=== PATIENT | male | born 1985 | race American Indian/Alaskan Native ===

== ENCOUNTER 2018-07-21 01:28 | Emergency (ER) | payer BC ==
[2018-07-21 01:35] VITALS: BP 130/70
[2018-07-21] MEDS ORDERED: IBUPROFEN PO ONE (04:51)
[2018-07-21] MEDS ORDERED: TYLENOL PO ONE (04:51)
--- NOTE | 2018-07-21 05:37 | XRay Report ---
PROCEDURE: XR KNEE 3V RT TECHNIQUE: Right knee radiographs, AP, lateral, and sunrise views. HISTORY: right knee pain COMPARISONS: None FINDINGS: Fracture (s) and/or Dislocation(s): None Alignment: Normal Joint space(s): Normal Soft tissues: Normal Bone mineralization: Normal Foreign bodies: None IMPRESSION: Normal Examination This document is electronically signed by Oren Schafer MD., July 21 2018 05:35:49 AM ET
--- NOTE | 2018-07-21 06:28 | Emergency Department Report ---
ED Lower Extremity HPI - General Chief Complaint: Extremity Injury, Lower Stated Complaint: RIGHT QUAD PULL Time Seen by Provider: 07/21/18 04:40 Source: patient Mode of arrival: Wheelchair Limitations: No Limitations - History of Present Illness Initial Comments: Patient is a 33-year-old [place] male with no past medical history presents to the ED with, in no acute onset persistent severe right knee pain and distal right thigh pain after he twisted his left leg and fell landing on the right knee and right thigh about 2 hours ago. Patient states he heard a "pop"sound and suspects that he may have torn his thigh muscles or suffered a fracture of the right knee in the process. Patient states that he is unable to bear weight on the right leg because of severe right knee pain. Patient denies head or neck injury, hip pain, low back pain, numbness and tingling or weakness of her right leg, dizziness, syncope, chest pain, shortness of breath, change in vision, abdominal pain, neck pain or loss of consciousness. MD Complaint: knee injury (right), leg injury (right thigh) -: Sudden, hour(s) (2), This morning Injury: Thigh: Right, Knee: Right Type of Injury: blunt, other (fall) Place: home Severity: severe Severity scale (0 -10): 8 Improves With: nothing Worsens With: weight bearing, movement, palpation Context: fall, walking Associated Symptoms: snap/pop sensation, able to partially bear weight. denies: swelling, numbness, tingling, ambulatory - Related Data Previous Rx's Medication Instructions Recorded Last Taken Type Acetaminophen/Codeine [Tylenol 1 tab PO Q6H PRN #15 tab 07/21/18 Unknown Rx /Codeine # 3 tab] Cyclobenzaprine [Flexeril] 10 mg PO Q8H PRN #21 tablet 07/21/18 Unknown Rx Ibuprofen [Motrin] 800 mg PO Q8HR PRN #24 tablet 07/21/18 Unknown Rx Allergies Allergy/AdvReac Type Severity Reaction Status Date / Time No Known Allergies Allergy Unverified 07/21/18 01:32 ED Review of Systems ROS: Stated complaint: RIGHT QUAD PULL Other details as noted in HPI Constitutional: denies: chills, fever Eyes: denies: eye pain, eye discharge, vision change ENT: denies: ear pain, throat pain Respiratory: denies: cough, shortness of breath, wheezing Cardiovascular: denies: chest pain, palpitations Endocrine: no symptoms reported Gastrointestinal: denies: abdominal pain, nausea, diarrhea Genitourinary: denies: urgency, dysuria Musculoskeletal: arthralgia (right knee and thigh pain). denies: back pain, joint swelling Skin: denies: rash, lesions Neurological: denies: headache, weakness, paresthesias Psychiatric: denies: anxiety, depression Hematological/Lymphatic: denies: easy bleeding, easy bruising ED Past Medical Hx - Past Medical History Previous Medical History?: No - Surgical History Past Surgical History?: No - Social History Smoking Status: Former Smoker Substance Use Type: Alcohol - Medications Home Medications: Home Medications Medication Instructions Recorded Confirmed Last Taken Type Acetaminophen/Codeine [Tylenol 1 tab PO Q6H PRN #15 tab 07/21/18 Unknown Rx /Codeine # 3 tab] Cyclobenzaprine [Flexeril] 10 mg PO Q8H PRN #21 tablet 07/21/18 Unknown Rx Ibuprofen [Motrin] 800 mg PO Q8HR PRN #24 tablet 07/21/18 Unknown Rx ED Physical Exam - General Limitations: No Limitations General appearance: alert, in no apparent distress - Head Head exam: Present: atraumatic, normocephalic, normal inspection - Eye Eye exam: Present: normal appearance, PERRL, EOMI. Absent: scleral icterus, conjunctival injection, nystagmus Pupils: Present: normal accommodation - ENT ENT exam: Present: normal exam, normal orophraynx, mucous membranes moist, TM's normal bilaterally, normal external ear exam - Neck Neck exam: Present: normal inspection, full ROM - Respiratory Respiratory exam: Present: normal lung sounds bilaterally. Absent: respiratory distress, wheezes, rhonchi, chest wall tenderness, accessory muscle use, decreased breath sounds, prolonged expiratory - Cardiovascular Cardiovascular Exam: Present: regular rate, normal rhythm, normal heart sounds. Absent: systolic murmur, diastolic murmur, rubs, gallop - GI/Abdominal GI/Abdominal exam: Present: soft, normal bowel sounds. Absent: tenderness, guarding, rebound, hyperactive bowel sounds, hypoactive bowel sounds, organomegaly - Rectal Rectal exam: Present: deferred - Extremities Exam Extremities exam: Present: normal inspection, tenderness (right knee tenderness with limited ROM due to pain), normal capillary refill. Absent: full ROM (limited due to pain) - Expanded Lower Extremity Exam Right Knee exam: Present: tenderness, pain w/ pronation/supination, posterior draw sign. Absent: full ROM (due to pain), swelling, laceration, ecchymosis, de formity, dislocation, erythema, full knee extension - Back Exam Back exam: Present: normal inspection, full ROM. Absent: tenderness, CVA tenderness (L), muscle spasm, paraspinal tenderness - Neurological Exam Neurological exam: Present: alert, oriented X3, CN II-XII intact, normal gait, reflexes normal - Psychiatric Psychiatric exam: Present: normal affect, normal mood - Skin Skin exam: Present: warm, dry, intact, normal color. Absent: rash ED Course Vital Signs 07/21/18 01:33 Temperature 98.4 F Pulse Rate 90 Respiratory 20 Rate Blood Pressure 130/70 O2 Sat by Pulse 96 Oximetry - Reevaluation(s) Reevaluation #1: 07/21/18 06:29 Patient is alert and oriented 3 and is not in distress with normal vital signs. Patient was treated for pain in the ED and right knee x-ray shows no acute fractures or subluxations. The right knee was immobilized in a knee mobilizer and patient fitted with crutches, and discharged home on pain medications and muscle relaxants. Patient was referred to the orthopedic surgeon social organization professor Dr. Jose for follow-up in the next 2-3 days. Vision advised to contact Dr. Jose's office to schedule an appointment for evaluation. Patient was advised to return to the ED immediately if symptoms get worse. ED Lower Extremity MDM - Radiology Data Radiology results: report reviewed, image reviewed Right knee x-ray: No acute fractures or subluxations - Medical Decision Making Patient is alert and oriented 3 and is not in distress with normal vital signs. Patient was treated for pain in the ED and right knee x-ray shows no acute fractures or subluxations. The patient's symptoms are likely related to a right knee sprain or right thigh muscle strain. The right knee was immobilized in a knee mobilizer and patient fitted with crutches, and discharged home on pain medications and muscle relaxants. Patient was referred to the orthopedic surgeon social organization professor Dr. Jose for follow-up in the next 2-3 days. Vision advised to contact Dr. Jose's office to schedule an appointment for evaluation. Patient was advised to return to the ED immediately if symptoms get worse. - Differential Diagnosis Right knee sprain; Right knee fracture, Right thigh muscle strain Critical care attestation.: If time is entered above; I have spent that time in minutes in the direct care of this critically ill patient, excluding procedure time. ED Disposition Clinical Impression: Sprain of right knee Qualifiers: Encounter type: initial encounter Involved ligament of knee: lateral collateral ligament Qualified Code(s): S83.421A - Sprain of lateral collateral ligament of right knee, initial encounter Muscle strain of right thigh Qualifiers: Encounter type: initial encounter Qualified Code(s): S76.911A - Strain of unspecified muscles, fascia and tendons at thigh level, right thigh, initial encounter Contusion of right leg Qualifiers: Encounter type: initial encounter Qualified Code(s): S80.11XA - Contusion of right lower leg, initial encounter Disposition: TO HOME OR SELFCARE Is pt being admited?: No Does the pt Need Aspirin: No Condition: Stable Instructions: Muscle Strain (ED), Knee Sprain (ED), Leg Sprain (ED) Additional Instructions: Take medications with food, drink plenty of fluids and follow up with your primary care physician in 3-5 days for reevaluation. Follow up with Dr. Jose the orthopedic surgeon social organization professor for further evaluation in 2-[address] Jose's office to schedule an appointment for evaluation. Return to the ED immediately if symptoms get worse. Prescriptions: Cyclobenzaprine [Flexeril] 10 mg PO Q8H PRN #21 tablet PRN Reason: Muscle Spasm Ibuprofen [Motrin] 800 mg PO Q8HR PRN #24 tablet PRN Reason: Pain , Severe (7-10) Acetaminophen/Codeine [Tylenol /Codeine # 3 tab] 1 tab PO Q6H PRN #15 tab PRN Reason: Pain , Severe (7-10) Referrals: ELISA ALVAREZ MD [Primary Care Provider] - 3-5 Days JOLENE JOSE MD [Staff Physician] - 2-3 Days Forms: Work/School Release Form(ED) Time of Disposition: 06:33 Print Language: YAKUT
== END 2018-07-21 07:21 | disposition home or self-care (01) ==
LOC: ED 01:28
DX: S83.421A Sprain of lateral collateral ligament of right knee, initial encounter (principal); S76.911A Strain of unspecified muscles, fascia and tendons at thigh level, right thigh, initial encounter; S80.11XA Contusion of right lower leg, initial encounter; W01.0XXA Fall on same level from slipping, tripping and stumbling without subsequent striking against object, initial encounter; Y93.89 Activity, other specified; Y92.89 Other specified places as the place of occurrence of the external cause; Y99.8 Other external cause status